=== PATIENT | female | born 1985 | race Caucasian/White ===

== ENCOUNTER 2021-06-16 13:56 | Emergency (ER) | payer SELFPAY ==
[2021-06-16 14:51] LABS: HEMOGLOBIN 11.3 gm/dl (12.3-15.3); RED BLOOD COUNT 4.03 M/UL (4.00-5.10); WHITE BLOOD COUNT 11.4 K/UL (4.5-11.0)
[2021-06-16 15:19] LABS: BUN/CREATININE RATIO 16 (0-10)
== END 2021-06-16 17:42 | disposition home or self-care (01) ==
LOC: ER1 13:56
PROVIDERS: Preventive Medicine Occupational Medicine
DX: R10.10 Upper abdominal pain, unspecified (principal)
CPT/HCPCS: 80053; 81001; 83540; 83550; 83690; 85025; 85379; 85652; 86140; 86403; 87086; 99285; Q9967